=== PATIENT | female | born 1955 | race Caucasian/White ===

== ENCOUNTER 2024-02-08 04:41 | Emergency (ER) | payer MEDICARE, BC, SELFPAY ==
[2024-02-08 04:48] VITALS: BP 120/63
[2024-02-08 05:13] VITALS: BMI 25.1
--- NOTE | 2024-02-08 05:16 | EDRN ---
Pt fell slipped while getting out of shower around 2129 last night. Pt hit her lower back on the ledge of the shower, her L knee on the toilet and her L elbow on the floor. No head injury. Pt has been applying ice to injuries and took 1 aleve at
0215. No neck pain.
--- NOTE | 2024-02-08 05:23 | ED.GENMED ---
History of Present Illness
General
Chief Complaint: Fall
Source: patient and spouse
Time Seen by Provider: 02/08/24 05:05
History of Present Illness
History of Present Illness:
68-year-old female who presents after she slipped and fell around 9:30 PM getting out of the shower. Patient states that she struck her left knee, left elbow and her low back. She had difficult time getting to bed but does admit that she got out
of the car and walked into the ER and felt a little better than she anticipated. She did not strike her head. No neck pain. No numbness or tingling. No abdominal pain. No chest pain. She is visiting from [place]
Past History
Past History
ED Past Medical History: Hypercholesterolemia
ED Past Surgical History: Orthopedic
Phy Exam
Physical Exam
Physical Exam:
CONSTITUTIONAL Patient alert and oriented to person, place and time. Well-appearing. Vital signs reviewed.
HEAD atraumatic, normocephalic.
EYES eyelids normal to inspection, Pupils equally round and reactive to light, Extraocular muscles intact, Conjunctiva normal, Sclera normal.
NECK normal range of motion, Trachea midline, no jugular venous distention. No midline tenderness
RESPIRATORY CHEST No respiratory distress noted, Chest expansion equal
BACK normal inspection, no obvious deformities. Mild tenderness to the left SI joint. No significant midline tenderness in the lumbar region.
UPPER EXTREMITY range of motion normal, Motor strength normal, no cyanosis, no edema.
LOWER EXTREMITY range of motion normal, Motor strength normal, no cyanosis, no edema. Mild proximal tibial tenderness
NEURO Speech normal, No focal motor deficits, Parker coma scale 15, Memory normal, Cranial Nerves intact to screening exam.
SKIN skin warm, dry, and normal in color.
PSYCHIATRIC patient oriented to person place and time, Normal affect.
Course
Orders/Labs/Results
Orders:
Orders
02/08/24 05:19
Knee, Left 4 or More Views [CR Knee - Left 4 Or More View*] Urgent
Comment:
Reason For Exam: fall
Lumbar Spine, 2 or 3 View [CR Lumbar Spine 2 Or 3 Views] Urgent
Comment:
Reason For Exam: fall
Vital Signs
Initial and Last Documented VS:
Initial Vital Signs
Temp Pulse Resp BP Pulse Ox
99.4 F 82 20 120/63 100
02/08/24 04:48 02/08/24 04:48 02/08/24 04:48 02/08/24 04:48 02/08/24 04:48
Last Documented Vital Signs
Temp Pulse Resp BP Pulse Ox
99.4 F 72 16 113/59 95
02/08/24 04:48 02/08/24 06:28 02/08/24 06:28 02/08/24 06:28 02/08/24 06:28
*Critical Care Note
Total Time (30-74mins, 75-104mins- exclusive of procedures): Not Applicable
ED Attending Note
-
Portions of this chart may have been created with voice recognition software.� Occasional wrong word or��sound alike� substitutions may have occurred due to the inherent limitations of voice recognition software.
Discharge Plan
Departure
Patient Disposition: Home (Routine Discharge)
Date of Disposition: 02/08/24
Time of Disposition: 06:19
Patient with high blood pressure during this ER visit?: No
Discharge Problem:
Fall, Contusion
Instructions: Low Back Pain (DC), Contusion (DC)
Prescriptions:
No Action
multivitamin [Hair,Nails and Skin Vitamin] Tablet
1 tab PO DAILY
cholecalciferol (vitamin D3) [Vitamin D3] 125 mcg (5,000 unit) Tablet
125 mcg PO DAILY
Vision Md
1 tab PO DAILY
Vitamin C
1 tab PO DAILY
Patient Comments:
pt does not know mg
Referrals:
NONE,* [Family Provider] -
Activity Restrictions/Additional Instructions:
Please rest, ice your injuries and use Tylenol as needed for pain control. Please see your doctor in the next 3 to 5 days for follow-up and reevaluation. If pain persist, further imaging may be necessary
Interventions
Interventions:
*Risk Screen - Suicide Last Done: 02/08/24 04:48
*General Assessment Last Done: 02/08/24 04:48
*Neglect/Abuse Screening Last Done: 02/08/24 04:48
ED- Fall Risk Assessment Last Done: 02/08/24 04:48
*ED COVID-19 Vaccine History Last Done: 02/08/24 04:48
*Nursing Disposition Last Done: 02/08/24 06:36
ED-Musculoskeletal Assessment Last Done: 02/08/24 05:13
ED- Neurological Assessment Last Done: 02/08/24 05:13
ED-Skin Assessment Last Done: 02/08/24 05:13
Discharge Date and Time
Discharge Date/Time: 02/08/24 06:36
Print Language: [id number]
[2024-02-08 06:28] VITALS: BP 113/59
== END 2024-02-08 06:36 | disposition home or self-care (01) ==
LOC: EMR 04:41
PROVIDERS: EMERGENCY PHYSICIAN Emergency Medicine
DX: T14.8XXA Other injury of unspecified body region, initial encounter (principal); S89.92XA Unspecified injury of left lower leg, initial encounter; S59.902A Unspecified injury of left elbow, initial encounter; S39.92XA Unspecified injury of lower back, initial encounter; W18.2XXA Fall in (into) shower or empty bathtub, initial encounter; Y93.E1 Activity, personal bathing and showering; E78.00 Pure hypercholesterolemia, unspecified
CPT/HCPCS: 99284; 72100; 73564